=== PATIENT | male | born 1950 | race Caucasian/White ===

== ENCOUNTER 2017-10-20 11:52 | Day surgery (SDC) | payer BC ==
[2017-10-20] MEDS ORDERED: LIDOCAINE 2% MDV (20MG/ML) 20ML VIAL IV ONE (11:53)
[2017-10-20] MEDS ORDERED: PROPOFOL 10 MG/ML VIAL IV ONE (11:53)
--- NOTE | 2017-10-21 12:40 | Operative Note ---
DATE OF SURGERY: 10/20/2017 OPERATION: COLONOSCOPY. PREOPERATIVE DIAGNOSIS: Personal history of tubular adenoma. POSTOPERATIVE DIAGNOSIS: Normal exam. PROCEDURE: After informed consent was obtained from the patient, he was placed in the left lateral decubitus position in the endoscopy suite, sedated and monitored by the department of anesthesia. Digital rectal exam was unremarkable. A well-lubricated [id number] colonoscope was inserted into the rectum and advanced to the cecum. Preparation quality was good. The cecum, appendiceal orifice, ileocecal valve, ascending colon, transverse colon, descending colon, sigmoid colon, and rectum were free of inflammatory changes, mass lesions, or polyps. Forward and J-turn views of the rectum and anorectum were unremarkable. The endoscope was straightened, the rectal ampulla deflated, and the endoscope was removed. RECOMMENDATIONS: The patient should resume his medications and diet. I would recommend a repeat exam in 5 years based on his history. As always, thank you for allowing me to participate in the healthcare of your patients. CC: DESTINY LEVINE MD, FACP [facility]
== END 2017-10-20 13:22 | disposition home or self-care (01) ==
LOC: HOP 11:52
PROVIDERS: ATTEND Internal Medicine Gastroenterology
DX: Z12.11 Encounter for screening for malignant neoplasm of colon (principal); Z86.010 Personal history of colon polyps; M19.90 Unspecified osteoarthritis, unspecified site
CPT/HCPCS: 00810; G0105

== ENCOUNTER 2019-03-06 12:09 | Day surgery (SDC) | payer BC ==
[~2019-03-06 12:09] MED LIST: ACETAMINOPHEN 1,000 MG/100 ML BTL IV ONE; CEFAZOLIN 2 Gram 2 GM/50 ML BAG IVPB ONE
[2019-03-06] MEDS ORDERED: MIDAZOLAM HCL 2MG/2ML VIAL IV ONE (12:10)
[2019-03-06] MEDS ORDERED: PROPOFOL 10 MG/ML VIAL IV ONE (12:10)
[2019-03-06] MEDS ORDERED: LIDOCAINE 2% MDV (20MG/ML) 20ML VIAL IV ONE (12:10)
[2019-03-06] MEDS ORDERED: MEPIVACAINE HCL/PF (POLOCAINE) 2% 20MG/ML VIAL INJ ONE (12:10)
[2019-03-06] MEDS ORDERED: BUPIVACAINE 0.25% MPF 30ML VIAL SQ ONE ×2 (15:07)
[2019-03-06] MEDS ORDERED: ONDANSETRON HCL IV 4 MG/2 ML VIAL IVP PRN (16:04)
[2019-03-06] MEDS ORDERED: HYDROCODONE/APAP 5/325MG TABLET PO PRN ×2 (16:04)
[2019-03-06] MEDS ORDERED: 0.9 % SODIUM CHLORIDE 10ML SYR IVP SCH (22:00)
== END 2019-03-06 18:37 | disposition home or self-care (01) ==
LOC: SUR 12:09 → MEDSURG 16:02 → SUR 18:37
PROVIDERS: ATTEND Urology
DX: N43.40 Spermatocele of epididymis, unspecified (principal); E66.9 Obesity, unspecified
CPT/HCPCS: J0670